=== PATIENT | female | born 1975 | race American Indian/Alaskan Native ===

== ENCOUNTER 2018-06-12 00:44 | Emergency (ER) | payer OTHER ==
[2018-06-12 00:44] VITALS: BMI 23.3
[2018-06-12 00:59] VITALS: RESP 18; TEMP 97.4; O2SAT 100
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
[2018-06-12 04:14] VITALS: BP 151/78; PULSE 90
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
== END 2018-06-12 03:45 | disposition home or self-care (01) ==
LOC: ED 00:44
DX: S00.03XA Contusion of scalp, initial encounter (principal); S63.617A Unspecified sprain of left little finger, initial encounter; Y04.0XXA Assault by unarmed brawl or fight, initial encounter; F17.210 Nicotine dependence, cigarettes, uncomplicated